=== PATIENT | female | born 1950 | race Caucasian/White ===

== ENCOUNTER 2024-08-12 10:19 | Outpatient (CLI) | payer OTHER | END 2024-08-12 10:20 | disposition home or self-care (01) | LOC: BICULT 10:19 | PROVIDERS: ATTEND Nurse Practitioner Family | DX: K76.0 Fatty (change of) liver, not elsewhere classified (principal); R16.0 Hepatomegaly, not elsewhere classified; N32.89 Other specified disorders of bladder; Z90.49 Acquired absence of other specified parts of digestive tract | CPT/HCPCS: 76705 ==

== ENCOUNTER 2024-10-21 12:06 | Outpatient (CLI) | payer OTHER | END 2024-10-21 12:07 | disposition home or self-care (01) | LOC: BICCT 12:06 | PROVIDERS: ATTEND Internal Medicine Gastroenterology | DX: K76.0 Fatty (change of) liver, not elsewhere classified (principal); R16.0 Hepatomegaly, not elsewhere classified; E66.9 Obesity, unspecified; R73.03 Prediabetes; K63.89 Other specified diseases of intestine | CPT/HCPCS: 36415; 74177; 82565 ==